=== PATIENT | female | born 1985 | race Two or more races ===

== ENCOUNTER 2021-06-16 20:42 | Emergency (ER) | payer OTHER ==
[2021-06-16 20:50] VITALS: BP 122/84; PULSE 88; TEMP 97.8; BMI 27.2
[2021-06-16] MEDS ORDERED: ENOXAPARIN NA (PORCINE) 40 MG/0.4 ML DISP.SYRIN SQ ONE ×2 (21:17→21:21)
== END 2021-06-16 21:28 | disposition home or self-care (01) ==
LOC: JERFT 20:42
DX: Z76.0 Encounter for issue of repeat prescription (principal)
CPT/HCPCS: 99283-25

== ENCOUNTER 2021-09-09 18:57 | Inpatient (IN) | payer OTHER ==
[2021-09-09 19:09] VITALS: BP 110/71; PULSE 98; TEMP 98.9; BMI 30.5
[2021-09-09] MEDS ORDERED: METOCLOPRAMIDE HCL INJECTION 10 MG/2 ML VIAL IVPUSH ONE ×2 (20:25→23:01)
[2021-09-09] MEDS ORDERED: ACETAMINOPHEN 1000 MG/100 ML BAG IVPB ONE (20:25)
[2021-09-09 20:42] LABS: BASO % 0.4 % (0-2.0); EOS % 0.3 % (0-4.5); HEMATOCRIT 35.9 % (32.4-45.2); HEMOGLOBIN 11.8 GM/dL (10.7-15.3); LYMPH % 15.7 % (8-40); MCHC 32.8 g/dl (32.0-36.0); MEAN CELL VOLUME 88.3 fl (80-96); MEAN PLT VOLUME 8.1 fl (7.5-11.1); MONO % 3.4 % (3.8-10.2); NEUT % 80.2 % (42.8-82.8); PLATELET COUNT 177 10^3/uL (134-434); RBC 4.06 M/mm3 (3.60-5.2); RDW 13.5 % (11.6-15.6); WHITE BLOOD COUNT 10.5 K/mm3 (4.0-10.0)
[2021-09-09] MEDS ORDERED: METOCLOPRAMIDE HCL INJECTION 10 MG/2 ML VIAL ONE ×2 (20:50→23:03)
[2021-09-09] MEDS ORDERED: ACETAMINOPHEN INJECTION 100 ML IVPB ONE (20:50)
[2021-09-09 23:36] LABS: URINE APPEARANCE CLEAR; URINE BILIRUBIN NEGATIVE (NEGATIVE); URINE COLOR YELLOW; URINE GLUCOSE (UA) NEGATIVE (NEGATIVE); URINE KETONE 2+ (NEGATIVE); URINE LEUK ESTERASE NEGATIVE (NEGATIVE); URINE NITRITE NEGATIVE (NEGATIVE); URINE PROTEIN NEGATIVE (NEGATIVE); URINE UROBILINOGEN 0.2 mg/dL (0.2-1.0)
[2021-09-09 23:50] LABS: BLOOD UREA NITROGEN 7.3 mg/dL (7-18); CALCIUM 8.6 mg/dL (8.5-10.1)
[2021-09-09 23:51] LABS: ALBUMIN 2.7 g/dl (3.4-5.0)
[2021-09-09 23:53] LABS: CREATININE 0.5 mg/dL (0.55-1.3)
[2021-09-09 23:55] LABS: BILIRUBIN,TOTAL 0.2 mg/dL (0.2-1); TOT PROT 6.4 g/dl (6.4-8.2)
[2021-09-10] MEDS ORDERED: SODIUM CHLORIDE 0.9% 500 ML INFUS.BAG IV ONE (00:09)
[2021-09-10] MEDS ORDERED: LACTATED RINGERS SOLUTION 1000 ML INFUS.BAG IV ONE ×2 (00:30→01:13)
[2021-09-10 04:22] LABS: INR 1.03 (0.83-1.09); PROTHROMBIN TIME (PATIENT) 11.9 SEC (9.7-13.0)
[2021-09-10 04:24] LABS: ACTIVATED PTT 30.1 SECONDS (25.2-36.5)
[2021-09-10] MEDS ORDERED: ACETAMINOPHEN 1000 MG/100 ML BAG IVPB PRN (05:09)
[2021-09-10] MEDS ORDERED: SODIUM CHLORIDE 1,000 ML IV SCH (05:15)
[2021-09-10] MEDS ORDERED: ACETAMINOPHEN INJECTION 100 ML IVPB ONE (09:18)
[2021-09-10] MEDS ORDERED: ENOXAPARIN NA (PORCINE) 40 MG/0.4 ML DISP.SYRIN SQ ONE (09:18)
[2021-09-10] MEDS ORDERED: ENOXAPARIN NA (PORCINE) 40 MG/0.4 ML DISP.SYRIN SQ SCH (10:00)
[2021-09-10] MEDS ORDERED: PYRIDOXINE HCL (B-6) 50 MG TABLET (FP) PO SCH (10:00)
[2021-09-10 11:22] LABS: BASO % 0.3 % (0-2.0); HEMATOCRIT 29.1 % (32.4-45.2); HEMOGLOBIN 9.8 GM/dL (10.7-15.3); LYMPH % 17.1 % (8-40); MCH 29.6 pg (25.7-33.7); MCHC 33.8 g/dl (32.0-36.0); MEAN CELL VOLUME 87.7 fl (80-96); MONO % 4.3 % (3.8-10.2); NEUT % 78.3 % (42.8-82.8); PLATELET COUNT 164 10^3/uL (134-434); RBC 3.32 M/mm3 (3.60-5.2); RDW 13.8 % (11.6-15.6); WHITE BLOOD COUNT 9.4 K/mm3 (4.0-10.0)
[2021-09-10 11:42] LABS: ALBUMIN 2.2 g/dl (3.4-5.0); CALCIUM 7.8 mg/dL (8.5-10.1)
[2021-09-10 11:43] LABS: BLOOD UREA NITROGEN 5.4 mg/dL (7-18); MAGNESIUM 1.9 mg/dL (1.8-2.4)
[2021-09-10 11:46] LABS: CREATININE 0.4 mg/dL (0.55-1.3); PHOSPHOROUS 2.2 mg/dL (2.5-4.9)
[2021-09-10 11:47] LABS: BILIRUBIN,TOTAL 0.6 mg/dL (0.2-1); TOT PROT 5.3 g/dl (6.4-8.2)
[2021-09-10] MEDS ORDERED: POTASSIUM PHOSPHATE 30 MM in SODIUM CHLORIDE 500 ML IVPB ONE (13:15)
== END 2021-09-10 19:08 | disposition home or self-care (01) | DRG 566 ==
LOC: JER 18:57 → JERBED 09-10 04:00
PROVIDERS: ADMIT Internal Medicine
DX: O26.892 Other specified pregnancy related conditions, second trimester (principal); I61.5 Nontraumatic intracerebral hemorrhage, intraventricular; O99.322 Drug use complicating pregnancy, second trimester; D68.59 Other primary thrombophilia; M41.9 Scoliosis, unspecified; R11.2 Nausea with vomiting, unspecified; F17.210 Nicotine dependence, cigarettes, uncomplicated; D72.829 Elevated white blood cell count, unspecified
CPT/HCPCS: 36415; 80053; 81003; 83690; 83735; 84100; 85025; 85610; 85730; 93005; 93010; 99285-25; C9803; U0003; U0005

== ENCOUNTER → 2021-09-10 | Emergency (ER) | payer OTHER ==
[~2021-09-10] MED LIST: morphine CARPU-JECT 2 MG/1 ML DISP.SYRIN IVPUSH ONE
[2021-09-10 15:12] VITALS: BP 128/84; PULSE 113; TEMP 98.2; BMI 29.9
== END ==
LOC: JER 15:03
PROC: 3E033NZ Introduction of Analgesics, Hypnotics, Sedatives into Peripheral Vein, Percutaneous Approach (ICD-10-PCS; principal; 2021-09-10)
DX: O26.892 Other specified pregnancy related conditions, second trimester (principal); R51.9 Headache, unspecified; Z3A.19 19 weeks gestation of pregnancy
CPT/HCPCS: 70450-TC; 99284-25

== ENCOUNTER 2021-12-29 19:14 | Emergency (ER) | payer OTHER ==
[2021-12-29 21:40] LABS: BASO % 0.4 % (0-2.0); EOS % 0.2 % (0-4.5); HEMATOCRIT 36.4 % (32.4-45.2); HEMOGLOBIN 11.9 GM/dL (10.7-15.3); LYMPH % 21.7 % (8-40); MCH 29.2 pg (25.7-33.7); MCHC 32.7 g/dl (32.0-36.0); MEAN CELL VOLUME 89.2 fl (80-96); MEAN PLT VOLUME 9.2 fl (7.5-11.1); MONO % 4.7 % (3.8-10.2); PLATELET COUNT 162 10^3/uL (134-434); RBC 4.08 M/mm3 (3.60-5.2); RDW 13.7 % (11.6-15.6); WHITE BLOOD COUNT 6.7 K/mm3 (4.0-10.0)
[2021-12-29 21:51] LABS: INR 0.95 (0.83-1.09); PROTHROMBIN TIME (PATIENT) 10.9 SEC (9.7-13.0)
[2021-12-29 21:53] LABS: ACTIVATED PTT 30.4 SECONDS (25.2-36.5)
[2021-12-29 22:03] LABS: ALBUMIN 2.4 g/dl (3.4-5.0); BLOOD UREA NITROGEN 10.4 mg/dL (7-18); CALCIUM 8.7 mg/dL (8.5-10.1); MAGNESIUM 1.9 mg/dL (1.8-2.4)
[2021-12-29 22:06] LABS: CREATININE 0.6 mg/dL (0.55-1.3)
[2021-12-29 22:07] LABS: BILIRUBIN,TOTAL 0.2 mg/dL (0.2-1); TOT PROT 6.2 g/dl (6.4-8.2)
[2021-12-29 23:55] LABS: EPI CELLS >36 /uL (0-25.1); HYALINE CASTS 3 /uL (0-3.1); URINE APPEARANCE CLEAR; URINE BACTERIA 707 /uL (0-1359); URINE BILIRUBIN NEGATIVE (NEGATIVE); URINE COLOR YELLOW; URINE GLUCOSE (UA) NEGATIVE (NEGATIVE); URINE KETONE 1+ (NEGATIVE); URINE LEUK ESTERASE NEGATIVE (NEGATIVE); URINE NITRITE NEGATIVE (NEGATIVE); URINE PROTEIN 1+ (NEGATIVE); URINE RBC 13 /uL (0-23.9); URINE UROBILINOGEN 0.2 mg/dL (0.2-1.0); URINE WBC 16 /uL (0-25.8)
[2021-12-30 00:46] VITALS: BP 109/69; PULSE 75; TEMP 98.1
== END 2021-12-30 01:45 | disposition short-term general hospital (02) ==
LOC: JER 19:14
DX: G40.89 Other seizures (principal)
CPT/HCPCS: 36415; 70450-TC; 80053; 81003; 82962; 83605; 83735; 85025; 85610; 85730; 86850; 86900; 86901; 87086; 93005; 93010; 99291; C9803-CS; U0003; U0005

== ENCOUNTER 2023-11-19 12:19 | Observation (INO) | payer OTHER ==
[2023-11-19 13:52] LABS: BASO % 0.6 % (0-2.0); EOS % 0.4 % (0-4.5); HEMOGLOBIN 13.8 GM/dL (10.7-15.3); LYMPH % 29.8 % (8-40); MCH 26.9 pg (25.7-33.7); MCHC 32.1 g/dl (32.0-36.0); MEAN CELL VOLUME 83.7 fl (80-96); MEAN PLT VOLUME 7.4 fl (7.5-11.1); MONO % 5.1 % (3.8-10.2); NEUT % 64.1 % (42.8-82.8); PLATELET COUNT 270 10^3/uL (134-434); RBC 5.13 M/mm3 (3.60-5.2); RDW 13.4 % (11.6-15.6); WHITE BLOOD COUNT 7.9 K/mm3 (4.0-10.0)
[2023-11-19 13:57] LABS: EPI CELLS 32 /uL (0-25.1); HYALINE CASTS 0 /uL (0-3.1); URINE APPEARANCE CLEAR; URINE BACTERIA 469 /uL (0-1359); URINE BILIRUBIN NEGATIVE (NEGATIVE); URINE COLOR YELLOW; URINE GLUCOSE (UA) NEGATIVE (NEGATIVE); URINE KETONE NEGATIVE (NEGATIVE); URINE LEUK ESTERASE 2+ (NEGATIVE); URINE NITRITE NEGATIVE (NEGATIVE); URINE PROTEIN NEGATIVE (NEGATIVE); URINE RBC 45 /uL (0-23.9); URINE UROBILINOGEN 0.2 mg/dL (0.2-1.0); URINE WBC 91 /uL (0-25.8)
[2023-11-19 13:59] LABS: INR 1.36 (0.83-1.09); PROTHROMBIN TIME (PATIENT) 15.7 SEC (9.7-13.0)
[2023-11-19 14:12] LABS: CALCIUM 8.8 mg/dL (8.5-10.1)
[2023-11-19 14:13] LABS: ALBUMIN 3.2 g/dl (3.4-5.0); BLOOD UREA NITROGEN 8.5 mg/dL (7-18); MAGNESIUM 2.3 mg/dL (1.8-2.4)
[2023-11-19 14:16] LABS: CREATININE 0.7 mg/dL (0.55-1.3)
[2023-11-19 14:18] LABS: BILIRUBIN,TOTAL 0.5 mg/dL (0.2-1)
[2023-11-19] MEDS ORDERED: CEFTRIAXONE 1 GM/50 ML BAG ONE (16:02)
[2023-11-19 20:13] VITALS: BMI 15.2
[2023-11-19] MEDS: APIXABAN 5 MG TABLET PO SCH (21:49)
[2023-11-19] MEDS: ATORVASTATIN CA 10 MG TABLET (FP) PO SCH (21:49)
[2023-11-19] MEDS: levETIRAcetam 250 MG TABLET PO SCH (21:50)
[2023-11-20 03:16] VITALS: RESP 20
[2023-11-20 07:08] LABS: BASO % 0.5 % (0-2.0); EOS % 1.5 % (0-4.5); HEMATOCRIT 39.7 % (32.4-45.2); HEMOGLOBIN 12.8 GM/dL (10.7-15.3); LYMPH % 48.3 % (8-40); MCH 27.1 pg (25.7-33.7); MCHC 32.2 g/dl (32.0-36.0); MEAN CELL VOLUME 84.2 fl (80-96); MEAN PLT VOLUME 7.7 fl (7.5-11.1); MONO % 5.1 % (3.8-10.2); NEUT % 44.6 % (42.8-82.8); PLATELET COUNT 239 10^3/uL (134-434); RBC 4.72 M/mm3 (3.60-5.2); RDW 13.5 % (11.6-15.6); WHITE BLOOD COUNT 6.4 K/mm3 (4.0-10.0)
[2023-11-20 07:25] LABS: POTASSIUM 3.8 mmol/L (3.5-5.1)
[2023-11-20 07:32] LABS: ALBUMIN 2.7 g/dl (3.4-5.0); BLOOD UREA NITROGEN 13.4 mg/dL (7-18); CALCIUM 8.3 mg/dL (8.5-10.1); MAGNESIUM 2.1 mg/dL (1.8-2.4)
[2023-11-20 07:35] LABS: CREATININE 0.7 mg/dL (0.55-1.3)
[2023-11-20 07:37] LABS: BILIRUBIN,TOTAL 0.5 mg/dL (0.2-1); TOT PROT 6.1 g/dl (6.4-8.2)
[2023-11-20] MEDS ORDERED: ENOXAPARIN NA (PORCINE) 40 MG/0.4 ML DISP.SYRIN SQ SCH (10:00)
[2023-11-20 14:01] VITALS: BP 100/69; PULSE 87; TEMP 98.4
== END 2023-11-20 14:55 | disposition home or self-care (01) ==
LOC: JER 12:19 → JERBED 16:04 → UNDOADMOB 16:04 → INTOOBSV 18:52 → OBSVTOIN 18:52 → JERBED 19:57 → J4W 19:57 → JERBED 11-20 09:12
PROVIDERS: ADMIT Internal Medicine; ATTEND Internal Medicine
DX: I69.859 Hemiplegia and hemiparesis following other cerebrovascular disease affecting unspecified side (principal); Q28.2 Arteriovenous malformation of cerebral vessels; D68.51 Activated protein C resistance; Z79.01 Long term (current) use of anticoagulants; R53.1 Weakness
CPT/HCPCS: 36415; 70450-TC; 70496-TC; 70498-TC; 70553-TC; 71045-TC-FY; 80053; 80061; 81003; 82550; 83036; 83735; 84100; 84439; 84443; 84703; 85025; 85610; 93005; 93010; 96374; 99285-25; G0378; Q9967